=== PATIENT | male | born 1950 | race Caucasian/White ===

== ENCOUNTER 2022-03-18 23:26 | Inpatient (IN) ==
--- NOTE | 2022-03-19 00:48 | Emergency Department Note ---
History of Present Illness General Chief complaint: Cough Stated complaint: COVID POSITIVE, COUGH, FLUID BUILDUP Time Seen by Provider: 03/19/22 00:07 History of Present Illness 71-year-old male presents emergency department with a 2-day history of being COVID-positive his cough cold congestion symptoms. Patient states that he is been taking Motrin for the past 48 hours. He states he has had a fever to 103. Patient states mild shortness of breath. Patient states that he is vaccinated with a booster. Patient denies nausea vomiting diarrhea. Patient denies pleuritic chest pain. Patient states that he feels generally weak. There were no other mitigating or alleviating factors Home Medications Medication Instructions Recorded Confirmed Type Multivitamin 1 tab PO DAILY ##0 07/31/09 09/15/21 History calcium carbonate 500 mg calcium 500 mg PO TID PRN 03/18/20 09/15/21 History (1,250 mg) chewable tablet flaxseed oil 1,000 mg capsule 1,000 mg PO DAILY 03/18/20 09/15/21 History lisinopril 20 1 tab PO DAILY 03/18/20 03/19/22 History mg-hydrochlorothiazide 12.5 mg tablet turmeric 400 mg capsule 400 mg PO DAILY 03/18/20 09/15/21 History meloxicam 15 mg tablet (Mobic) 15 mg PO DAILY 09/15/21 09/15/21 History gabapentin 300 mg capsule 300 mg PO TID 03/19/22 03/19/22 History Allergies Allergy/AdvReac Type Severity Reaction Status Date / Time bacitracin Allergy Intermediate Hives Verified 09/14/20 14:52 [From Neosporin ([id number])] fluorouracil Allergy Intermediate HIVES Verified 09/14/20 14:52 neomycin Allergy Intermediate Hives Verified 09/14/20 14:52 [From Neosporin ([id number])] polymyxin B Allergy Intermediate Hives Verified 09/14/20 14:52 [From Neosporin ([id number])] Past Med/Surg History Medical History (Updated 03/19/22 @ 01:34 by Christian Mcdowell DO) Chronic arthritis Diffuse large B cell lymphoma Hypertension Skin cancer, basal cell Right forearm Abdomen Surgical History H/O right inguinal hernia repair History of tonsillectomy Hx of colonoscopy Status post chemotherapy Family History Mother , 87yo of unknown cause Pt feels certain is was related to pancreatic cancer Father , 92yo Congestive heart failure Brother No problems noted. Brother No problems noted. Sister No problems noted. 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 [employer] Feels Safe at Home: Yes caffeine: Yes (3 cups/day) during the past year weight has: remained stable Review of Systems A total of 10 systems reviewed and were otherwise negative Constitutional: + fever and + body aches Respiratory: + cough Cardiovascular: no chest pain Physical Exam Vital Signs Vital Signs - 24 hr 03/18/22 23:28 03/19/22 00:37 03/19/22 00:37 Temperature 37.4 C Temperature Source Temporal Artery Scan Pulse Rate 86 74 Pulse Rate from SpO2 Sensor Respiratory Rate 20 22 22 Respiratory Effort / Characteristics Spontaneous Respiratory Depth Normal Blood Pressure 140/73 Blood Pressure Mean 95 Pulse Oximetry 90 94 97 Oxygen Delivery Method Room Air Nasal Cannula Nasal Cannula Oxygen Flow Rate 2 2 Sepsis Recent Fever Within 48 Hours Yes Sepsis New/Unexplained Change in Mental Status N/A Sepsis Action Taken by Nursing No Action Required 03/19/22 00:37 03/19/22 01:07 03/19/22 00:21 Temperature Temperature Source Pulse Rate 87 Pulse Rate from SpO2 Sensor 84 Respiratory Rate 22 19 19 Respiratory Effort / Characteristics Short of Breath Short of Breath Respiratory Depth Blood Pressure Blood Pressure Mean Pulse Oximetry 94 92 Oxygen Delivery Method Nasal Cannula Oxygen Flow Rate 2 Sepsis Recent Fever Within 48 Hours Sepsis New/Unexplained Change in Mental Status Sepsis Action Taken by Nursing 03/19/22 00:23 03/19/22 00:23 03/19/22 00:30 Temperature Temperature Source Pulse Rate 79 Pulse Rate from SpO2 Sensor 79 Respiratory Rate 16 Respiratory Effort / Characteristics Respiratory Depth Blood Pressure 131/74 132/72 Blood Pressure Mean 93 92 Pulse Oximetry 92 Oxygen Delivery Method Oxygen Flow Rate Sepsis Recent Fever Within 48 Hours Sepsis New/Unexplained Change in Mental Status Sepsis Action Taken by Nursing 03/19/22 00:30 03/19/22 00:45 03/19/22 01:00 Temperature Temperature Source Pulse Rate 79 79 Pulse Rate from SpO2 Sensor 80 Respiratory Rate 22 22 Respiratory Effort / Characteristics Respiratory Depth Blood Pressure 134/67 Blood Pressure Mean 89 Pulse Oximetry 87 L 93 Oxygen Delivery Method Room Air Nasal Cannula Oxygen Flow Rate 2 Sepsis Recent Fever Within 48 Hours Sepsis New/Unexplained Change in Mental Status Sepsis Action Taken by Nursing 03/19/22 01:00 Temperature Temperature Source Pulse Rate 73 Pulse Rate from SpO2 Sensor 74 Respiratory Rate 17 Respiratory Effort / Characteristics Respiratory Depth Blood Pressure Blood Pressure Mean Pulse Oximetry 95 Oxygen Delivery Method Nasal Cannula Oxygen Flow Rate 2 Sepsis Recent Fever Within 48 Hours Sepsis New/Unexplained Change in Mental Status Sepsis Action Taken by Nursing VITAL SIGNS - Vital signs and nursing notes were reviewed. GENERAL - n no acute distress. Communicates well with provider and answers questions appropriately. SKIN - Without rashes. HEAD - NC/AT. EYES - PERRL with EOMI bilaterally. Sclera anicteric. Palpebral conjunctiva pink and moist with no injection noted. EARS - No deformities of external structures noted on gross examination bilaterally. NOSE - Midline and without cyanosis. No epistaxis or purulent drainage noted. Septum midline without deviation or septal hematoma noted. MOUTH/OROPHARYNX - Without perioral cyanosis. Buccal mucosa pink and moist NECK - Neck with FROM. Supple to palpation. . No nuchal rigidity. LUNGS - Chest wall symmetric without accessory muscle use, intercostals retractions, or central cyanosis. Normal vesicular breath sounds CTA B/L. No wheezes, rales, or rhonchi appreciated. CARDIAC - RRR with S1/S2. No murmur, rubs, or gallops appreciated. ABDOMEN - Abdominal contour soft without pulsations or visible masses. BS normoactive all four quadrants. No tenderness, palpable masses, hepatosplenomegaly, or ascites noted. EXTREMITIES - No clubbing or peripheral cyanosis. +5/5 strength noted in UE/LE bilaterally. NEUROLOGIC - Cranial nerves II through XII grossly intact. PSYCH - A&Ox3 and cooperates fully with examiner. Pt is very pleasant and interacts well with examiner. Course Reevaluation(s) Reevaluation #1: Patient was started on IV fluids, patient was given 2 L of oxygen, patient remained stable condition. Patient will be admitted for sodium, hypoxia, COVID. The case was discussed with the [facility] hospitalist for admission. Time: 01:35 Critical Care Time Critical Care Time: Yes Total Critical Care Time: 35 I have personally spent greater than 35 minutes of critical care time in the direct management of this patient. This includes bedside care, interpretation of diagnostic studies, and testing, discussion with consultants, patient, and family members, and other required patient management activities. These minutes are in excess of all separately billable procedures. Medical Decision Making Medical Records Attestation: I reviewed the patient's medical records. Home Medications Current Medication List: was personally reviewed by me Laboratory Data Attestation: I reviewed the patient's lab results. Result diagrams: 03/19/22 00:35 03/19/22 00:35 Lab Results 03/19/22 03/19/22 03/19/22 Range/Units 00:35 00:35 00:35 WBC 6.90 (4.8-10.8) K/ul RBC 4.21 L (4.63-6.08) M/uL Hgb 13.3 L (14.0-18.0) g/dl Hct 37.8 L (40.1-51.0) % MCV 89.8 (80.0-100.0) fL MCH 31.6 (25.0-34.0) pg MCHC 35.2 (32.0-36.0) g/dL RDW Std Deviation 41.4 (36.4-46.3) fL RDW Coeff of Dean 12.7 (11.5-14.5) % Plt Count 155 (130-400) K/uL MPV 10.6 (9.4-12.4) fL Immature Gran % (Auto) 0.3 % Neut % (Auto) 76.7 % Lymph % (Auto) 10.7 % Robertson % (Auto) 12.0 % Eos % (Auto) 0.0 % Baso % (Auto) 0.3 % Neut # (Auto) 5.29 (1.4-6.5) K/uL Lymph # (Auto) 0.74 L (1.2-3.4) K/uL Robertson # (Auto) 0.83 H (0.24-0.82) K/uL Eos # (Auto) 0.00 (0-0.50) K/uL Baso # (Auto) 0.02 (0-0.2) K/uL Immature Gran # (Auto) 0.02 (0.00-0.02) K/uL PT 10.7 (9.0-12.0) Seconds INR 1.0 (0.9-1.1) APTT 26.7 (21.0-31.0) Seconds PTT Ratio 1.0 Sodium 128 L (136-145) mmol/L Potassium 3.3 L (3.5-5.1) mmol/L Chloride 92 L (98-107) mmol/L Carbon Dioxide 28 (21-32) mmol/L Anion Gap 8 (3-11) BUN 15 (6-23) mg/dl Creatinine 0.80 (0.6-1.4) mg/dl Est Cr Clr Drug Dosing 78.0 ml/min Est GFR ( Amer) 103.4 ml/min Est GFR (Non-Af Amer) 89.2 ml/min BUN/Creatinine Ratio 18.8 (10-20) Glucose 130 H (70-99(Fasting)) mg/dl Lactate (0.4-2.0) mmol/L Calcium 8.5 (8.5-10.1) mg/dl Magnesium 1.7 (1.7-2.4) mg/dl Total Bilirubin 2.1 H (0.2-1.0) mg/dl AST 19 (13-39) U/L ALT 14 (7-52) U/L Alkaline Phosphatase 70 (34-104) U/L Total Protein 6.6 (6.0-8.3) gm/dl Albumin 4.1 (3.4-5.0) gm/dl Globulin 2.5 (2.5-4.0) gm/dl Albumin/Globulin Ratio 1.6 (0.9-2) 03/19/22 Range/Units 00:35 WBC (4.8-10.8) K/ul RBC (4.63-6.08) M/uL Hgb (14.0-18.0) g/dl Hct (40.1-51.0) % MCV (80.0-100.0) fL MCH (25.0-34.0) pg MCHC (32.0-36.0) g/dL RDW Std Deviation (36.4-46.3) fL RDW Coeff of Dean (11.5-14.5) % Plt Count (130-400) K/uL MPV (9.4-12.4) fL Immature Gran % (Auto) % Neut % (Auto) % Lymph % (Auto) % [place] % (Auto) % Eos % (Auto) % Baso % (Auto) % Neut # (Auto) (1.4-6.5) K/uL Lymph # (Auto) (1.2-3.4) K/uL Robertson # (Auto) (0.24-0.82) K/uL Eos # (Auto) (0-0.50) K/uL Baso # (Auto) (0-0.2) K/uL Immature Gran # (Auto) (0.00-0.02) K/uL PT (9.0-12.0) Seconds INR (0.9-1.1) APTT (21.0-31.0) Seconds PTT Ratio Sodium (136-145) mmol/L Potassium (3.5-5.1) mmol/L Chloride (98-107) mmol/L Carbon Dioxide (21-32) mmol/L Anion Gap (3-11) BUN (6-23) mg/dl Creatinine (0.6-1.4) mg/dl Est Cr Clr Drug Dosing ml/min Est GFR ( Amer) ml/min Est GFR (Non-Af Amer) ml/min BUN/Creatinine Ratio (10-20) Glucose (70-99(Fasting)) mg/dl Lactate 1.0 (0.4-2.0) mmol/L Calcium (8.5-10.1) mg/dl Magnesium (1.7-2.4) mg/dl Total Bilirubin (0.2-1.0) mg/dl AST (13-39) U/L ALT (7-52) U/L Alkaline Phosphatase (34-104) U/L Total Protein (6.0-8.3) gm/dl Albumin (3.4-5.0) gm/dl Globulin (2.5-4.0) gm/dl Albumin/Globulin Ratio (0.9-2) Imaging Data Radiologist's Impression: Chest X-Ray 03/19/22 00:07 SINGLE VIEW CHEST CLINICAL HISTORY: Sepsis. FINDINGS: An AP, portable, upright chest radiograph is compared to study dated 07/31/2009. Correlation is made with PET/CT dated 02/04/2020. The heart is enla rged. The pulmonary vasculature is noncontrasted. Chronic interstitial thickening is similar to previous. Scarring/atelectasis is noted at the lung bases. No airspace consolidation or large pleural effusion is identified. No pneumothorax is seen. The skeletal structures are osteopenic. The bony thorax is grossly intact. IMPRESSION: Cardiomegaly with no acute cardiopulmonary abnormality identified. ACT 112: Negative or not required by law. Electronically signed by: Ellis Bass M.D. 03/19/2022 1:05 AM ECG Data Attestation: I personally reviewed and interpreted this ECG as follows: Additional Comments: EKG interpreted by me normal sinus rhythm rate of 80 poor R wave progression the precordium no obvious ST segment elevation or depression left axis deviation MDM Narrative Medical decision making differential diagnosis includes COVID, pneumonia, dehydration, metabolic derangement plan is to check labs EKG chest x-ray give IV fluids. Impression & Plan COVID-19, Hypoxia, Acute hyponatremia Discharge Plan Visit Data Chief Complaint: Cough Stated Complaint: COVID POSITIVE, COUGH, FLUID BUILDUP ED Provider: Christian Mcdowell Discharge Problem: COVID-19, Hypoxia, Acute hyponatremia Patient Disposition: Being Evaluated by Hospitalist Forms Stand Alone Forms: My [facility] Prescriptions Prescriptions: No Action flaxseed oil 1,000 mg capsule 1,000 mg PO DAILY Rx Instructions: administer with a meal calcium carbonate 500 mg calcium (1,250 mg) tablet,chewable 500 mg PO TID PRN turmeric 400 mg capsule 400 mg PO DAILY lisinopril-hydrochlorothiazide 20-12.5 mg tablet 1 tab PO DAILY meloxicam [Mobic] 15 mg tablet 15 mg PO DAILY Multivitamin tablet 1 tab PO DAILY Qty: 0 gabapentin 300 mg capsule 300 mg PO TID Referrals Referrals: Jordan Conroy, [Primary Care Provider] -
[2022-03-19 00:57] LABS: Basophils # (auto) 0.02 K/uL (0-0.2); Basophils % (auto) 0.3 %; Hematocrit (blood only) 37.8 % (40.1-51.0); Hemoglobin 13.3 g/dl (14.0-18.0); Immature Granulocytes # (auto) 0.02 K/uL (0.00-0.02); Immature Granulocytes % (auto) 0.3 %; Lymphocytes # (auto) 0.74 K/uL (1.2-3.4); Lymphocytes % (auto) 10.7 %; Mean Corpuscular Hemoglobin 31.6 pg (25.0-34.0); Mean Corpuscular Hgb Conc 35.2 g/dL (32.0-36.0); Mean Corpuscular Volume 89.8 fL (80.0-100.0); Mean Platelet Volume 10.6 fL (9.4-12.4); Monocytes # (auto) 0.83 K/uL (0.24-0.82); Neutrophils # (auto) 5.29 K/uL (1.4-6.5); Neutrophils % (auto) 76.7 %; Platelet Count 155 K/uL (130-400); RDW Coefficient of Variation 12.7 % (11.5-14.5); RDW Standard Deviation 41.4 fL (36.4-46.3); Red Blood Count 4.21 M/uL (4.63-6.08)
--- NOTE | 2022-03-19 01:06 | XRay Report ---
SINGLE VIEW CHEST CLINICAL HISTORY: Sepsis. FINDINGS: An AP, portable, upright chest radiograph is compared to study dated 07/31/2009. Correlation is made with PET/CT dated 02/04/2020. The heart is enlarged. The pulmonary vasculature is noncontraste d. Chronic interstitial thickening is similar to previous. Scarring/atelectasis is noted at the lung bases. No airspace consolidation or large pleural effusion is identified. No pneumothorax is seen. Th e skeletal structures are osteopenic. The bony thorax is grossly intact. IMPRESSION: Cardiomegaly with no acute cardiopulmonary abnormality identified. ACT 112: Negative or not required by law. Electronically signed by: Ellis Bass M.D. 03/19/2022 1:05 AM
[2022-03-19 01:09] LABS: Partial Thromboplastin Time 26.7 Seconds (21.0-31.0); Prothrombin Time 10.7 Seconds (9.0-12.0)
[2022-03-19 01:16] LABS: Albumin Globulin Ratio 1.6 (0.9-2); Albumin Level 4.1 gm/dl (3.4-5.0); BUN Creatinine Ratio 18.8 (10-20); Bilirubin,Total 2.1 mg/dl (0.2-1.0); Calcium 8.5 mg/dl (8.5-10.1); Est GFR (African American) 103.4 ml/min; Est GFR (Non-African American) 89.2 ml/min; Globulin 2.5 gm/dl (2.5-4.0); Magnesium 1.7 mg/dl (1.7-2.4); Potassium 3.3 mmol/L (3.5-5.1); Total Protein 6.6 gm/dl (6.0-8.3)
--- NOTE | 2022-03-19 01:40 | History & Physical Report ---
Date of Service March 19, 2022 Assessment & Plan (1) COVID-19: Plan: 71yo male with HTN, Diffuse large B cell lyphoma presenting with two days of cough, congestion and fever. Found to be POSITIVE for Covid-19 infection. He is fully vaccinated + 2 boosters. +Sick contacts with Covid-19. Patient is presently afebrile, HD stable. Was hypoxic in the ER to 87% on RA requiring placement of supplemental O2. Presently saturating well at 94% on 2L. History of malignancy as well as age place him at risk for more severe disease. -Admit to medical -Maintain isolation precautions -Check CRP, Ferritin, LDH -Treatment with Dexamethasone 6mg IV daily - first dose ordered for nwo -Treatment with Remdesivir x 5 day protocol -Tylenol, Mucinex, Tessalon PRN -Supplemental O2 PRN (2) Acute hyponatremia: Plan: Rw=287, most likely secondary to SIADH in setting of Covid-19 infection. Asymptomatic -Check urine and serum osmolality -Check urine Na -Monitor Na, check chemistry in AM (3) Diffuse large B cell lymphoma: Plan: Chronic. Noted. No treatment (4) Hypertension: Plan: Blood pressure stable, presently 134/67. On medications -Continue Lisinopril/HCTZ po daily -Monitor Patient was recently started on Gabapentin for sciatic nerve pain -Continue Gabapentin F/E/N - Heplock. Check Mg and PO4 x 1 and replete as needed, Regular diet as tolerated Ppx - Lovenox 40 Code- Full per discussion with patient Dispo - Admit to medical History of Present Illness Chief Complaint: Covid-19 Primary Care Provider: DO Ulysses Oliva is a pleasant 71yo male with history of HTN and B-cell lymphoma presenting with Covid-19 infection. Patient is fully vaccinated + 2 boosters, has not had Covid-19 yet. He has had two days of cough productive for clear sputum, congestion as well as fever to 103. He has mild shortness of breath. He denies chest pain, palpitations, abdominal pain, nausea, vomiting, diarrhea. No additional complaints at this time. In the ER he is afebrile, HD stable. He did drop his oxygen to 87% on room air and was placed on supplemental O2. Presently 94% on 2L ER Course: Dexamethasone 6mg IV x 1 ordered (to be given) Allergies Allergy/AdvReac Type Severity Reaction Status Date / Time bacitracin Allergy Intermediate Hives Verified 03/19/22 01:43 [From Neosporin ([id number])] fluorouracil Allergy Intermediate HIVES Verified 03/19/22 01:43 neomycin Allergy Intermediate Hives Verified 03/19/22 01:43 [From Neosporin ([id number])] polymyxin B Allergy Intermediate Hives Verified 03/19/22 01:43 [From Neosporin ([id number])] Home Medications Medication Instructions Recorded Confirmed Type flaxseed oil 1,000 mg capsule 1,000 mg PO DAILY 03/18/20 03/19/22 History lisinopril 20 1 tab PO DAILY 03/18/20 03/19/22 History mg-hydrochlorothiazide 12.5 mg tablet turmeric 400 mg capsule 400 mg PO DAILY 03/18/20 03/19/22 History coenzyme Q10 100 mg capsule (Co 100 mg PO DAILY 03/19/22 03/19/22 History Q-10) gabapentin 300 mg capsule 300 mg PO TID 03/19/22 03/19/22 History Past Med/Surg History Medical History (Updated 03/19/22 @ 01:59 by Anna Brown DO) Chronic arthritis Diffuse large B cell lymphoma Hypertension Skin cancer, basal cell Right forearm Abdomen Surgical History H/O right inguinal hernia repair History of tonsillectomy Hx of colonoscopy Status post chemotherapy Family History Mother , 87yo of unknown cause Pt feels certain is was related to pancreatic cancer Father , 92yo Congestive heart failure Brother No problems noted. Brother No problems noted. Sister No problems noted. 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 [employer] Feels Safe at Home: Yes caffeine: Yes (3 cups/day) during the past year weight has: remained stable Review of Systems Review of Systems: All systems reviewed & are unremarkable except as noted in HPI & below Physical Exam Physical Exam: General: patient resting comfortably, NAD, non-toxic in appearance, AA&O x 4 Skin: warm, dry, intact, no rashes or lesions HEENT: NC/AT, PERRL, EOMI, anicteric sclera, conjunctiva without injection, external ear normal to inspection and nontender, nares patent, moist mucus membranes, dentition intact, no oropharyngeal lesions, neck supple, trachea midline, no LAD, no thyromegaly, no JVD Heart: +S1/S2, regular, no m/r/g Lungs: equal air entry bilaterally, no rales/rhonchi/wheezes, +moist cough Abd: +BS, soft, NT/ND, no masses/organomegaly/ascites Ext: warm, 2+ pulses in UE/LE bilaterally, no clubbing/cyanosis or edema Neuro: nonfocal, patient AA&O x 4, speech intact, no facial droop, moving all extremities on command with equal strength 5/5 Results & Data Results & Data ([facility]) Vital Signs (Past 12 Hours) Vital Signs Temp Pulse Resp BP Pulse Ox O2 Del Method O2 Flow Rate 03/19/22 01:00 73 17 95 Nasal Cannula 2 03/19/22 01:00 134/67 03/19/22 00:45 79 22 93 Nasal Cannula 2 03/19/22 00:30 79 22 87 L Room Air 03/19/22 00:30 132/72 03/19/22 00:23 131/74 03/19/22 00:23 79 16 92 03/19/22 00:21 87 19 92 03/19/22 01:07 19 94 Nasal Cannula 2 03/19/22 00:37 22 03/19/22 00:37 74 22 97 Nasal Cannula 2 03/19/22 00:37 22 94 Nasal Cannula 2 03/18/22 23:28 37.4 C 86 20 140/73 90 Room Air Laboratory Results Laboratory Results WBC 6.90 K/ul (4.8-10.8) 03/19/22 00:35 RBC 4.21 M/uL (4.63-6.08) L 03/19/22 00:35 Hgb 13.3 g/dl (14.0-18.0) L 03/19/22 00:35 Hct 37.8 % (40.1-51.0) L 03/19/22 00:35 MCV 89.8 fL (80.0-100.0) 03/19/22 00:35 MCH 31.6 pg (25.0-34.0) 03/19/22 00:35 MCHC 35.2 g/dL (32.0-36.0) 03/19/22 00:35 RDW Std Deviation 41.4 fL (36.4-46.3) 03/19/22 00:35 RDW Coeff of Dean 12.7 % (11.5-14.5) 03/19/22 00:35 Plt Count 155 K/uL (130-400) 03/19/22 00:35 MPV 10.6 fL (9.4-12.4) 03/19/22 00:35 Immature Gran % (Auto) 0.3 % 03/19/22 00:35 Neut % (Auto) 76.7 % 03/19/22 00:35 Lymph % (Auto) 10.7 % 03/19/22 00:35 [place] % (Auto) 12.0 % 03/19/22 00:35 Eos % (Auto) 0.0 % 03/19/22 00:35 Baso % (Auto) 0.3 % 03/19/22 00:35 Neut # (Auto) 5.29 K/uL (1.4-6.5) 03/19/22 00:35 Lymph # (Auto) 0.74 K/uL (1.2-3.4) L 03/19/22 00:35 [place] # (Auto) 0.83 K/uL (0.24-0.82) H 03/19/22 00:35 Eos # (Auto) 0.00 K/uL (0-0.50) 03/19/22 00:35 Baso # (Auto) 0.02 K/uL (0-0.2) 03/19/22 00:35 Immature Gran # (Auto) 0.02 K/uL (0.00-0.02) 03/19/22 00:35 PT 10.7 Seconds (9.0-12.0) 03/19/22 00:35 INR 1.0 (0.9-1.1) 03/19/22 00:35 APTT 26.7 Seconds (21.0-31.0) 03/19/22 00:35 PTT Ratio 1.0 03/19/22 00:35 Sodium 128 mmol/L (136-145) L 03/19/22 00:35 Potassium 3.3 mmol/L (3.5-5.1) L 03/19/22 00:35 Chloride 92 mmol/L (98-107) L 03/19/22 00:35 Carbon Dioxide 28 mmol/L (21-32) 03/19/22 00:35 Anion Gap 8 (3-11) 03/19/22 00:35 BUN 15 mg/dl (6-23) 03/19/22 00:35 Creatinine 0.80 mg/dl (0.6-1.4) 03/19/22 00:35 Est Cr Clr Drug Dosing 78.0 ml/min 03/19/22 00:35 Est GFR ( Amer) 103.4 ml/min 03/19/22 00:35 Est GFR (Non-Af Amer) 89.2 ml/min 03/19/22 00:35 BUN/Creatinine Ratio 18.8 (10-20) 03/19/22 00:35 Glucose 130 mg/dl (70-99(Fasting)) H 03/19/22 00:35 Lactate 1.0 mmol/L (0.4-2.0) 03/19/22 00:35 Calcium 8.5 mg/dl (8.5-10.1) 03/19/22 00:35 Magnesium 1.7 mg/dl (1.7-2.4) 03/19/22 00:35 Total Bilirubin 2.1 mg/dl (0.2-1.0) H 03/19/22 00:35 AST 19 U/L (13-39) 03/19/22 00:35 ALT 14 U/L (7-52) 03/19/22 00:35 Alkaline Phosphatase 70 U/L (34-104) 03/19/22 00:35 Total Protein 6.6 gm/dl (6.0-8.3) 03/19/22 00:35 Albumin 4.1 gm/dl (3.4-5.0) 03/19/22 00:35 Globulin 2.5 gm/dl (2.5-4.0) 03/19/22 00:35 Albumin/Globulin Ratio 1.6 (0.9-2) 03/19/22 00:35 SARS-CoV-2, RNA, NAAT POSITIVE (NEGATIVE) A* 03/19/22 01:30 Impressions Chest X-Ray 03/19/22 00:07 SINGLE VIEW CHEST CLINICAL HISTORY: Sepsis. FINDINGS: An AP, portable, upright chest radiograph is compared to study dated 07/31/2009. Correlation is made with PET/CT dated 02/04/2020. The heart is enlarged. The pulmonary vasculature is noncontrasted. Chronic interstitial thickening is similar to previous. Scarring/atelectasis is noted at the lung bases. No airspace consolidation or large pleural effusion is identified. No pneumothorax is seen. The skeletal structures are osteopenic. The bony thorax is grossly intact. IMPRESSION: Cardiomegaly with no acute cardiopulmonary abnormality identified. ACT 112: Negative or not required by law. Electronically signed by: Ellis Bass M.D. 03/19/2022 1:05 AM Code Status & VTE Plan VTE Prophylaxis Plan VTE Prophylaxis will be ordered: Yes PG Care Time/CCT Total # of Minutes Spent Total Time Spent with Patient: Total time spent is greater than 50% in coordination of care (as documented) at patient's floor/unit and/or counseling patient: Coding Level of Care Code 19744 Initial Inpt Care Lvl 2 Diagnoses COVID-19 U07.1 Acute hyponatremia E87.1 Diffuse large B cell lymphoma C83.35 Lymphoma site: lower extremity Hypertension I10 (1) Diffuse large B cell lymphoma Lymphoma site: lower extremity Qualified Code(s): C83.35 - Diffuse large B- cell lymphoma, lymph nodes of inguinal region and lower limb
[2022-03-19] MEDS ORDERED: dexAMETHasone 6 MG in SYRINGE 0 ML IV ONE ×2 (01:57→02:39)
[2022-03-19] MEDS ORDERED: dexAMETHasone 1.5 ML IV STA (02:03)
[2022-03-19 02:17] LABS: Appearance Urine Clear (Clear); Bacteria Urine Automated Negative (Negative); Bilirubin Urine Negative (Negative); Blood Urine Negative (Negative); Color Urine Yellow; Glucose Urine UA Negative (Negative); Ketones Urine Trace (Negative); Leukocyte Esterase Urine Negative (Negative); Nitrite Urine Negative (Negative); Protein Urine 1+ (Negative); RBC Urine Automated 0-4 /hpf (0-4); Specific Gravity Urine 1.031 (1.000-1.030); Urobilinogen Urine Negative (Negative); pH Urine 5.5 (4.5-7.5)
[2022-03-19] MEDS ORDERED: SODIUM CHLORIDE 0.9% 1000ML 1,000 ML IV ONE (02:22)
[2022-03-19] MEDS ORDERED: ACETAMINOPHEN 325 MG TAB PO PRN (02:48)
[2022-03-19] MEDS ORDERED: ONDANSETRON INJ 2 MG/ML 2 ML VIAL IV PRN (02:48)
[2022-03-19 03:13] LABS: C Reactive Protein 5.55 mg/dl (0-0.5); Magnesium 1.7 mg/dl (1.7-2.4); Phosphorus 2.8 mg/dl (2.5-4.9)
[2022-03-19] MEDS ORDERED: guaiFENesin 600 MG TABCR PO ONE (03:15)
[2022-03-19] MEDS ORDERED: REMDESIVIR 200 MG in SODIUM CHLORIDE 0.9% 210 ML IV ONE (03:15)
[2022-03-19 03:30] LABS: Ferritin 105.2 ng/ml (8-388)
[2022-03-19] MEDS: BENZONATATE 100 MG CAPSULE PO PRN ×2 (03:34→12:34)
[2022-03-19] MEDS: dexAMETHasone 6 MG in SYRINGE 0 ML IV SCH (08:29)
[2022-03-19] MEDS: ENOXAPARIN INJ 40 MG/0.4 ML SYR SQ SCH (08:29)
[2022-03-19] MEDS: LISINOPRIL/HCTZ 20/12.5MG 1 TAB TAB PO SCH (08:30)
[2022-03-19] MEDS: GABAPENTIN 300 MG CAP PO SCH ×3 (08:30→19:52)
[2022-03-19] MEDS: guaiFENesin 600 MG TABCR PO SCH ×2 (08:30→19:52)
[2022-03-19] MEDS ORDERED: POTASSIUM CHLORIDE CRTAB 20 MEQ TABCR PO STA (11:42)
--- NOTE | 2022-03-19 20:33 | Electrocardiogram Report ---
Test Reason : Blood Pressure : / mmHG Vent. Rate : 080 BPM Atrial Rate : 080 BPM P-R Int : 166 ms QRS Dur : 096 ms QT Int : 354 ms P-R-T Axes : 045 -13 026 degrees QTc Int : 408 ms Normal sinus rhythm Low voltage QRS Inferior infarct , age undetermined Abnormal ECG When compared with ECG of 31-JUL-2009 21:44, Inferior infarct is now Present Nonspecific T wave abnormality, worse in Inferior leads T wave amplitude has decreased in Lateral leads Confirmed by Fredy Kent ([id number]) on 03/19/2022 8:33:44 PM Referred By: REFERRED SELF Confirmed By:Fredy Kent
[2022-03-20 07:25] LABS: Hematocrit (blood only) 37.4 % (40.1-51.0); Hemoglobin 12.9 g/dl (14.0-18.0); Lymphocytes # (auto) 0.87 K/uL (1.2-3.4); Mean Corpuscular Hemoglobin 31.4 pg (25.0-34.0); Mean Corpuscular Hgb Conc 34.5 g/dL (32.0-36.0); Mean Platelet Volume 10.4 fL (9.4-12.4); Monocytes # (auto) 0.75 K/uL (0.24-0.82); Monocytes % (auto) 17.2 %; Neutrophils # (auto) 2.74 K/uL (1.4-6.5); Neutrophils % (auto) 62.8 %; Platelet Count 153 K/uL (130-400); RDW Coefficient of Variation 12.8 % (11.5-14.5); RDW Standard Deviation 42.5 fL (36.4-46.3); Red Blood Count 4.11 M/uL (4.63-6.08); White Blood Count 4.36 K/ul (4.8-10.8)
[2022-03-20 07:54] LABS: Albumin Level 3.6 gm/dl (3.4-5.0); BUN Creatinine Ratio 31.8 (10-20); Bilirubin Direct 0.2 mg/dl (0-0.2); Bilirubin,Total 1.5 mg/dl (0.2-1.0); Calcium 8.4 mg/dl (8.5-10.1); Creatinine Clr Calc Pharmacy 94.6 ml/min; Est GFR (African American) 111.9 ml/min; Est GFR (Non-African American) 96.6 ml/min; Potassium 3.8 mmol/L (3.5-5.1)
[2022-03-20] MEDS: dexAMETHasone 6 MG in SYRINGE 0 ML IV SCH (08:53)
[2022-03-20] MEDS: ENOXAPARIN INJ 40 MG/0.4 ML SYR SQ SCH (08:53)
[2022-03-20] MEDS: guaiFENesin 600 MG TABCR PO SCH (08:54)
[2022-03-20] MEDS: GABAPENTIN 300 MG CAP PO SCH ×2 (08:54→13:10)
[2022-03-20] MEDS: LISINOPRIL/HCTZ 20/12.5MG 1 TAB TAB PO SCH (08:54)
[2022-03-20] MEDS ORDERED: REMDESIVIR 100 MG in SODIUM CHLORIDE 0.9% 230 ML IV SCH (12:00)
--- NOTE | 2022-03-20 13:41 | Discharge Summary ---
Date of Service March 20, 2022 Admission HPI Per Admitting Provider Ulysses Sanders is a pleasant 71yo male with history of HTN and B-cell lymphoma presenting with Covid-19 infection. Patient is fully vaccinated + 2 boosters, has not had Covid-19 yet. He has had two days of cough productive for clear sputum, congestion as well as fever to 103. He has mild shortness of breath. He denies chest pain, palpitations, abdominal pain, nausea, vomiting, diarrhea. No additional complaints at this time. In the ER he is afebrile, HD stable. He did drop his oxygen to 87% on room air and was placed on supplemental O2. Presently 94% on 2L ER Course: Dexamethasone 6mg IV x 1 ordered (to be given) Principal Diagnosis 1. COVID-19 PNA 2. Acute hypoxic respiratory failure d/t #1 3. Hyponatremia-resolved Discharge Exam GENERAL: 71 yo Well-developed, well-nourished WM. NAD. LUNGS: Nonlabored. Coarse bibasilar crackles. No wheezes or rhonchi. CARDIOVASCULAR: Regular rate and rhythm. ABDOMEN: Soft, non-tender and non-distended. BS normoactive x 4 quad. EXTREMITIES: No edema. Non-tender. Peripheral pulses +2/4. NEUROLOGIC: A&O x3. Nonfocal PSYCHIATRIC: Cooperative. Appropriate mood and affect. SKIN: Warm, dry, intact. No rashes or lesions. Discharge Data Allergies Allergy/AdvReac Type Severity Reaction Status Date / Time bacitracin Allergy Intermediate Hives Verified 03/19/22 01:43 [From Neosporin ([id number])] fluorouracil Allergy Intermediate HIVES Verified 03/19/22 01:43 neomycin Allergy Intermediate Hives Verified 03/19/22 01:43 [From Neosporin ([id number])] polymyxin B Allergy Intermediate Hives Verified 03/19/22 01:43 [From Neosporin ([id number])] Ordered Studies Chest X-Ray 03/19/22 00:07 SINGLE VIEW CHEST CLINICAL HISTORY: Sepsis. FINDINGS: An AP, portable, upright chest radiograph is compared to study dated 07/31/2009. Correlation is made with PET/CT dated 02/04/2020. The heart is enlarged. The pulmonary vasculature is noncontrasted. Chronic interstitial thickening is similar to previous. Scarring/atelectasis is noted at the lung bases. No airspace consolidation or large pleural effusion is identified. No pneumothorax is seen. The skeletal structures are osteopenic. The bony thorax is grossly intact. IMPRESSION: Cardiomegaly with no acute cardiopulmonary abnormality identified. ACT 112: Negative or not required by law. Electronically signed by: Ellis Bass M.D. 03/19/2022 1:05 AM Hospital Course (1) COVID-19: 71yo male with HTN, Diffuse large B cell lyphoma presenting with two days of cough, congestion and fever. Found to be POSITIVE for Covid-19 infection. He is fully vaccinated + 2 boosters. +Sick contacts with Covid-19. Patient is presently afebrile, HD stable. Was hypoxic in the ER to 87% on RA requiring placement of supplemental O2. Presently saturating well at 94% on 2L. History of malignancy as well as age place him at risk for more severe disease. -Admitted to medical floor -Maintain isolation precautions -CRP 5.55, Ferritin level and LDH WNL -Treatment with Dexamethasone 6mg IV daily -Treatment with Remdesivir x 5 day protocol -Tylenol, Mucinex, Tessalon PRN -Supplemental O2 PRN-no longer requiring. 96% at rest on room air and 95% with ambulation -Can stop Remdesivir and continue Decadron at home x8 more doses -Remainder would be supportive care, rest, fluids, apap as needed for fever (2) Acute hyponatremia: [id number], suspect secondary to dehydration/low solute intake -Check urine and serum osmolality -Check urine Na -Monitor Na, repeat level this morning is WNL at 140 (3) Diffuse large B cell lymphoma: Chronic. Noted. No treatment (4) Hypertension: Blood pressure stable, presently 134/67. On medications -Continue Lisinopril/HCTZ po daily -BP well controlled Patient was recently started on Gabapentin for sciatic nerve pain -Continue Gabapentin Plan At this point, pt is medically and hemodynamically stable for discharge home as he is no longer requiring supplemental O2. Can stop Remdesivir. Continue Decadron at home x 8 more days. Rest, fluids, apap as needed for fever. Follow up with pcp in one week. Follow all CDC/[place] guidelines regarding isolation. Plan of care has been d/w Dr. Phillips who has also seen and evaluated this patient and agrees with aforementioned. Total Time Total Time Spent Total Time Spent (In Minutes): >30 minutes Discharge Plan Discharge Items Patient Disposition: Home - Self-Care Reason For Visit: COVID-19, HYPOXIA, HYPONATREMIA Discharge Diagnosis: covid-19 pneumonia Activity: As commented below Activity Comment: as tolerated Non-emergency contact: Primary Care Provider Call non-emergency contact if: you have any medication questions and your symptoms worsen Follow-up/Referrals: Jordan Conroy, [Primary Care Provider] - Diet: Regular Addtl Attending Provider Instructions: You were hospitalized due to covid-19 infection which caused you to develop a viral pneumonia and lower your oxygen levels. Fortunately, you have responded well to steroids (Decadron) and antiviral (Remdesivir) medications that were started here in the hospital. You are no longer requiring oxygen, therefore the antiviral medications can be discontinued. You will be discharged home on steroids (Decadron), you will take it once a day in the morning with food for 8 more days. Next dose is due on 03/21/22. I would encourage you to continue taking Mucinex (which you can purchase over the counter) twice a day to help mobilize mucus. It is advised that you follow up with your family doctor in one week. Please follow all cdc/state department of health guidelines on isolating while you still have symptoms. If you have any questions following your discharge that cannot be answered by your pcp, call the nonemergency number listed on your paperwork. In the event of a medical emergency, call 911. Pending Studies at Discharge: No Stand-Alone Forms: [facility], Smoking Cessation Medications and DC Order Prescriptions: New benzonatate 100 mg Capsule 100 mg PO TID PRN (Reason: cough) Qty: 30 0RF dexamethasone [Decadron] 6 mg tablet 6 mg PO DAILY Qty: 8 0RF Continued flaxseed oil 1,000 mg capsule 1,000 mg PO DAILY Rx Instructions: administer with a meal turmeric 400 mg capsule 400 mg PO DAILY lisinopril-hydrochlorothiazide 20-12.5 mg tablet 1 tab PO DAILY gabapentin 300 mg capsule 300 mg PO TID coenzyme Q10 [Co Q-10] 100 mg Capsule 100 mg PO DAILY Discharge Orders: Discharge Order (Routine); Ordered 03/20/22 Ordered By: Gretel Hernandez Admission Data Admit Date/Time: 03/19/22 01:39 Attending Provider: Remi Phillips Admit Provider: Anna Brown Primary Care Provider: Jordan Conroy Coding Level of Care Code D/C DAY MANAGEMENT >30 MINS Diagnoses COVID-19 U07.1 Acute hyponatremia E87.1 Diffuse large B cell lymphoma C83.35 Lymphoma site: lower extremity Hypertension I10
== END 2022-03-20 16:07 | disposition home or self-care (01) | DRG 177 ==
LOC: ED 23:26 → 3E 03-19 01:39 → SUATTDRO 03-19 01:39 → 3E 03-19 02:32